=== PATIENT | male | born 1980 | race Caucasian/White ===

== ENCOUNTER → 2025-03-11 | Outpatient (CLI) | payer BC ==
[2025-03-11 15:06] LABS: HCT 44.4 % (39.6-50.0); HGB 14.8 g/dL (13.0-17.0); MCH 30.6 pg (27.0-32.0); MCHC 33.3 g/dL (32.0-37.0); MCV 91.7 FL (80.0-97.0); NRBC Per 100 WBC 0 X 10*3/uL (0.00-0.01); Platelet Count 281 X 10*3/uL (140-440); RBC 4.84 X 10*6/uL (4.40-5.60); RDW 12.4 % (11.5-14.5); WBC 7.29 X 10*3/uL (4.50-10.00)
[2025-03-11 15:30] LABS: ALT 49 U/L (10-49); AST 32 U/L (14-35); Blood Urea Nitrogen 17.2 mg/dL (9.0-27.0); Carbon Dioxide 20.6 mmol/L (21.6-31.8); Chloride 109 mmol/L (96-109); Chol/HDL Ratio 4.28 Ratio; Glucose 109 mg/dL (70-110); LDL Cholesterol,Calculated 127.2 mg/dL (0.0-131.0); Potassium 4.1 mmol/L (3.5-5.5); Sodium 145 mmol/L (135-145); VLDL Calculation 12.32 mg/dL (5.00-40.00)
== END | disposition home or self-care (01) ==
LOC: LABWHC1 10:07
PROVIDERS: ATTEND Internal Medicine Cardiovascular Disease
DX: E78.2 Mixed hyperlipidemia (principal); R00.2 Palpitations
CPT/HCPCS: 36415; 80048; 80061; 84443; 84450; 84460; 85027